=== PATIENT | female | born 1985 | race Two or more races ===

== ENCOUNTER 2022-06-01 12:43 | Emergency (ER) | payer OTHER ==
[~2022-06-01] VITALS: Ht 170.2 cm; Wt 90.7 kg
[~2022-06-01 12:43] MED LIST: KETO10TA2 PO; MOTRIN800 MG PO
[2022-06-01] MEDS ORDERED: DICLOFENAC SODI75 MG PO (15:18)
[2022-06-01] MEDS ORDERED: BACTRIM DS TAB1 EACH PO (15:18)
== END 2022-06-01 15:54 | disposition home or self-care (01) ==
LOC: ER 12:43
DX: N88.8 Other specified noninflammatory disorders of cervix uteri (principal); N39.0 Urinary tract infection, site not specified

== ENCOUNTER 2022-08-11 19:04 | Emergency (ER) | payer OTHER ==
[~2022-08-11] VITALS: Ht 170.2 cm; Wt 95.3 kg
[~2022-08-11 19:04] MED LIST changes: +BACTRIM DS TAB1 EACH PO; +DICLOFENAC SODI75 MG PO
== END 2022-08-12 00:03 | disposition home or self-care (01) ==
LOC: ER 19:04
DX: M62.830 Muscle spasm of back (principal); R52 Pain, unspecified